=== PATIENT | female | born 1955 | race Caucasian/White ===

== ENCOUNTER → 2017-08-28 | Outpatient (CLI) | payer MEDICARE ==
--- NOTE | 2017-08-28 18:52 | CONS ---
CONSULTATION DATE OF SERVICE: 08/28/17 62-year-old lady who has been evaluated in the [facility] for possible obstructive sleep apnea-hypopnea syndrome. HISTORY OF PRESENT ILLNESS/SLEEP WAKE EVALUATION: Patient usual sleep schedule from around midnight until 6:00 a.m. and then she gets out of bed around 8:00 a.m. Usually no problems with falling asleep. No TV in bedroom. She snores, has witnessed episodes of stopped breathing during the sleep. She grinds her teeth. Wakes up with dry mouth. Positive history of sleep talking. The patient wakes up from sleep up to 6 times with up to 4 episodes or nocturia. In the morning patient wakes up tired, falling asleep during the day. Takes naps usually in the afternoon. Usually during the naps no dreams. [place] Sleepiness Scale significantly increased to 15. PAST MEDICAL HISTORY: Positive for hypertension, diabetes, hyperlipidemia, Kasia granulomatosis, total hysterectomy for small area of CA, some nasal breathing problems. PAST SURGICAL HISTORY: Lung biopsy, total hysterectomy, mass removed from the abdomen was benign 2014. MEDICATIONS: Glipizide, metformin, amlodipine, atorvastatin, lisinopril, baby aspirin. SOCIAL HISTORY: Negative for smoking. Alcohol consumption rarely. REVIEW OF SYSTEMS: Multiple awakenings from sleep. Sleepiness during the day. No fevers No double vision. No recent chest pain. No shortness of breath. No abdominal pain. No bleeding episodes. No blood in urine. No seizure episodes. FAMILY HISTORY: Hypertension, angina, heart problems, stroke, arthritis, cancer, snoring, sleep apnea, lung problems, acid reflux, diabetes, anemia, restless legs. PHYSICAL EXAM: GENERAL: 62-year-old lady without distress. VITAL SIGNS: BP 156/85, HR 82, RR 16, height 5 foot 8, weight 274, BMI 41.6. Neck 18 inches in circumference. Temperature 98. Oxygen saturation 94%. HEENT: PERRLA, EOMI. Evaluation of oropharynx showed low position of soft palate. Retrognathia 3 mm. Restriction of nasal breathing, wide neck. NECK: Supple. No JVD. Thyroid is not palpable. LUNGS: clear to percussion and to auscultation. Good air exchange. No wheezing or rhonchi. HEART: S1, S2 regular. No murmurs, gallops or rubs. ABDOMEN: Obese. Soft and nontender. Bowel sounds are present. No organomegaly appreciated. EXTREMITIES: No cyanosis or clubbing. CASER UP: Awake, alert and oriented x3. Cranial nerves II through VII intact. There is no fasciculation or atrophy noted. No focal deficits observed. IMPRESSION: 1. Snoring, witnessed episodes of stopped breathing during sleep, low position of soft palate, multiple awakenings from sleep, sleepiness, wide neck, obstructive sleep apnea-hypopnea syndrome. 2. Obesity, BMI 41.6. 3. Diabetes mellitus. 4. Hypertension. 5. Hyperlipidemia. 6. History of Kasia granulomatosis of the lungs. 7. Status post total hysterectomy for small carcinoma. 8. Status post benign mass removed from the abdomen in 2014. 9. Possible nasal septum deviation with restriction of nasal breathing. PLAN: 1. Polysomnography for evaluation of patient's breathing during sleep. 2. CPAP/BiPAP titration if sleep study confirms obstructive sleep apnea-hypopnea syndrome. 3. Preferable position during sleep on the side. 4. No driving if patient feels any sleepiness. Patient is aware of civil and criminal liability for unsafe driving. 5. I will see the patient for follow-up visit to explain results of the testing and following plan. Thank you very much for allowing me to participate in the management of your patient. Sincerely, Golden Alexander MD, PhD, FAASM Diplomat of [place], Sleep Medicine Board by [employer] [employer] Air Traffic Coordinator of [facility] [place] MMODL / IJN: [id number] /
== END ==
LOC: SLEEP 14:32
PROVIDERS: ATTEND Internal Medicine
DX: G47.33 Obstructive sleep apnea (adult) (pediatric) (principal); E66.9 Obesity, unspecified; E11.9 Type 2 diabetes mellitus without complications; I10 Essential (primary) hypertension; E78.5 Hyperlipidemia, unspecified; Z68.41 Body mass index [BMI] 40.0-44.9, adult; M31.30 Wegener's granulomatosis without renal involvement; Z90.710 Acquired absence of both cervix and uterus; Z79.899 Other long term (current) drug therapy; Z79.82 Long term (current) use of aspirin
CPT/HCPCS: 99211

== ENCOUNTER → 2017-12-18 | Outpatient (CLI) | payer MEDICARE ==
--- NOTE | 2017-12-18 18:14 | PN ---
PROGRESS NOTE DATE OF SERVICE: 12/18/2017 A 62-year-old lady who has been followed in the Sleep Center for treatment of severe obstructive sleep apnea-hypopnea syndrome. Recently patient had a polysomnogram and CPAP titration and I discussed results of sleep studies with patient in details. She has severe sleep apnea and subsequently was started on treatment with CPAP. She feels significantly better with CPAP. She is sleeping better and she feels better during the day. I checked her CPAP unit. CPAP pressure of 13 cm of water. Usage is 26/30 nights for more than 4 hours, average 6.5 hours per night. Leak is only 2 L/minute which is practically nothing. Apnea-hypopnea index reading from the machine for the last month is only 0.3, which is perfect. [place] Sleepiness Scale today is 5. MEDICATIONS: Occasions glipizide, metformin, amlodipine, atorvastatin, lisinopril, aspirin. PHYSICAL EXAM: GENERAL Patient in no distress. VITAL SIGNS BP 150/74, HR 78, RR 16, weight 277, temp 97.7, oxygen saturation room air 97%. HEENT PERRLA, EOMI, evaluation of oropharynx showed moderately low position of soft palate. Big uvula. NECK Supple, no JVD. Thyroid is not palpable. LUNGS Clear to percussion and to auscultation. Good air exchange. No wheezing or rhonchi. HEART S1, S2 regular. No murmurs, gallops, or rubs. ABDOMEN Obese. Soft and nontender. Bowel sounds are present. No organomegaly appreciated. EXTREMITIES No clubbing or cyanosis. ACCOUNT SUPPORT SPECIALIST Awake, alert, and oriented X3. Cranial nerves 2 to 7 intact. There is no fasciculation or atrophy. noted. No focal deficits observed. physical exam normal. IMPRESSION: 1. Extremely severe obstructive sleep apnea-hypopnea syndrome with extremely severe oxygen desaturation to 57.1% on control with CPAP at 13 cm of water. Patient demonstrated great compliance with treatment, benefitting from treatment. 2. Obesity. 3. Severe periodic limb movements during titration. No periodic limb movements during diagnostic night. Presently, patient does not have any significant periodic limb movements during sleep. 4. Diabetes mellitus. 5. Hypertension. 6. Hyperlipidemia. 7. History of Rabun's granulomatosis of the lungs. 8. Status post total hysterectomy, . 9. Status post benign mass and mass removed from the abdomen in 2015. 10.Some restriction of nasal breathing, possible slight nasal septal deviation. PLAN: 1. Patient will continue to use her CPAP equipment every night for the whole night. 2. Losing weight. 3. Sleep hygiene with regular time bed for at least 8 hours. 4. No driving if feeling sleepiness. Thank you very much for allowing me to participate in management of your patient. Sincerely, Golden Alexander MD, PhD, FAASM Diplomat of [place] [employer] [place] [employer] Moose Hunter of [facility] [place] MMODL / IJN: [id number] /
== END | disposition home or self-care (01) ==
LOC: SLEEP 16:00
PROVIDERS: ATTEND Internal Medicine
DX: G47.33 Obstructive sleep apnea (adult) (pediatric) (principal); G47.61 Periodic limb movement disorder; E78.5 Hyperlipidemia, unspecified; E11.9 Type 2 diabetes mellitus without complications; I10 Essential (primary) hypertension; E66.9 Obesity, unspecified; Z99.89 Dependence on other enabling machines and devices; Z79.899 Other long term (current) drug therapy; Z79.84 Long term (current) use of oral hypoglycemic drugs; Z79.82 Long term (current) use of aspirin; Z87.09 Personal history of other diseases of the respiratory system; Z90.710 Acquired absence of both cervix and uterus

== ENCOUNTER → 2018-08-05 | Outpatient (CLI) | payer MEDICARE ==
--- NOTE | 2018-08-05 08:55 | US ---
EXAMINATION TYPE: US liver DATE OF EXAM: 08/05/2018 COMPARISON: CT 03/26/2016 CLINICAL HISTORY: 62-year-old female R74.8 Elevated liver enzymes. FINDINGS: CHIEF OPHTHALMIC TECHNICIAN NOTES: Difficult and limited exam due to overlying bowel gas and patient body habitus EXAM MEASUREMENTS: Liver Length: 19.5 cm Gallbladder Wall: 0.2 cm, within normal limits. CBD: 0.5 cm Right Kidney: 12.0 x 4.4 x 6.0 cm Pancreas: Only a small portion of the pancreatic neck is seen. Remainder is obscured by bowel gas. Liver: Enlarged, echogenic, and attenuating. This secondarily limits assessment for focal lesion. Gallbladder: Borderline distended. No stones visualized Evidence for sonographic Archuleta's sign: No CBD: wnl as visualized, distal portion obscured by bowel gas Right Kidney: No hydronephrosis. IMPRESSION: 1. Enlarged (19.5 cm), echogenic, and attenuating liver suggesting marked hepatic steatosis. 2. Gallbladder is borderline distended likely relating to fasting state. No cholelithiasis or ancilla ry findings of acute cholecystitis.
== END | disposition home or self-care (01) ==
LOC: RADUSWWP 07:00
PROVIDERS: ATTEND Family Medicine
DX: R16.0 Hepatomegaly, not elsewhere classified (principal); K82.8 Other specified diseases of gallbladder; R74.8 Abnormal levels of other serum enzymes
CPT/HCPCS: 76705

== ENCOUNTER → 2019-02-17 | Outpatient (CLI) | payer MEDICARE ==
--- NOTE | 2019-02-18 10:46 | MM ---
Reason for exam: screening (asymptomatic). Last mammogram was performed 2 years and 11 months ago. History: Patient is postmenopausal, has history of other cancer at age 59, and had first child at age 36. Physical Findings: A clinical breast exam by your physician is recommended on an annual basis and results should be correlated with mammographic findings. MG 3D Screening Mammo W/Cad Bilateral CC and MLO view(s) were taken. Prior study comparison: March 26, 2016, bilateral MG screening mammo w CAD. April 28, 2013, bilateral digital screening mammo w/CAD. There are scattered fibroglandular densities. No suspicious abnormality. No significant changes when compared with prior studies. ASSESSMENT: Negative, BI-RAD 1 RECOMMENDATION: Routine screening mammogram of both breasts in 1 year.
== END ==
LOC: RADMAMWWP 09:41
PROVIDERS: ATTEND Family Medicine
DX: Z12.31 Encounter for screening mammogram for malignant neoplasm of breast (principal)
CPT/HCPCS: 77063; 77067

== ENCOUNTER → 2019-06-10 | Outpatient (CLI) | payer MEDICARE ==
--- NOTE | 2019-06-10 18:22 | PN ---
PROGRESS NOTE DATE OF SERVICE: 06/10/2019 This patient is a 63-year-old lady who has been followed in Sleep Center for treatment of obstructive sleep apnea-hypopnea syndrome. The patient continues to use her CPAP equipment every night for the whole night without significant problems related to mask fitting, pressure or humidification. [place] Sleepiness Scale today is 5. I checked her CPAP unit. CPAP pressure is 13 cm of water. The patient is using equipment every night for the whole night 100% of nights, with average usage 7 hours per night. Leak is only 2 L/minute. Apnea-hypopnea index reading from the machine is only 0.8, which is absolutely perfect. MEDICATIONS: 1. Metformin. 2. Amlodipine. 3. Atorvastatin. 4. Lisinopril. 5. Aspirin. 6. Glipizide. 7. Insulin. PHYSICAL EXAMINATION: GENERAL: A pleasant patient in no distress. VITAL SIGNS: BP 162/77, HR 80, RR 16, height 5 feet 8 inches, weight 270 pounds, which is 7 pounds less than during his last visit, body mass index 41. Temperature 97.1. Oxygen saturation at room air 95%. HEENT: PERRLA, EOMI. Evaluation of oropharynx showed tongue protrudes midline. Moderately low position of soft palate. NECK: Supple. No JVD. Thyroid is not palpable. LUNGS: Clear to percussion and to auscultation. Good air exchange. No wheezing or rhonchi. HEART: S1, S2 regular. No murmurs, gallops or rubs. ABDOMEN: Slightly obese. EXTREMITIES: No clubbing or cyanosis. SAFETY TECHNICIAN: Awake, alert, and oriented X3. Cranial nerves 2 to 7 intact. There is no fasciculation or atrophy. noted. No focal deficits observed. IMPRESSION: 1. Extremely severe obstructive sleep apnea-hypopnea syndrome with oxygen desaturation to 57%, under full control with CPAP at 13 cm of water. Patient demonstrated 100% compliance with treatment, benefitting from treatment. 2. History of periodic limb movements during titration. No symptoms of periodic limb movements at the present time. 3. Obesity. 4. Diabetes mellitus. 5. Hypertension. 6. Hyperlipidemia. 7. History of Kasia's granulomatosis of the lungs. 8. Status post total hysterectomy. 9. Status post benign mass removed from the abdomen in 2014. 10.Some restriction of nasal breathing; possibly nasal septum deviation. PLAN: 1. Prescription for all necessary CPAP supplies, including mask, tube, filters. 2. Patient will continue to use CPAP equipment every night for the whole night. 3. Continue losing weight. 4. Sleep hygiene with regular time in bed for at least 8 hours. 5. No driving if feeling any sleepiness. Thank you very much for allowing me to participate in the management of your patient. Sincerely, Golden Alexander MD, PhD, FAASM Diplomat of [place] [employer] [place] [employer] Baler Operator of [facility] [place] MMODL / IJN: [id number] /
== END ==
LOC: SLEEP 15:50
PROVIDERS: ATTEND Internal Medicine
DX: G47.33 Obstructive sleep apnea (adult) (pediatric) (principal); E66.9 Obesity, unspecified; E11.9 Type 2 diabetes mellitus without complications; I10 Essential (primary) hypertension; E78.5 Hyperlipidemia, unspecified; Z87.09 Personal history of other diseases of the respiratory system; Z90.710 Acquired absence of both cervix and uterus; Z98.890 Other specified postprocedural states; J98.8 Other specified respiratory disorders; Z99.89 Dependence on other enabling machines and devices; Z79.899 Other long term (current) drug therapy; Z79.82 Long term (current) use of aspirin; Z79.4 Long term (current) use of insulin; Z68.41 Body mass index [BMI] 40.0-44.9, adult

== ENCOUNTER → 2020-08-25 | Outpatient (CLI) | payer SELFPAY ==
--- NOTE | 2020-08-25 11:08 | XR ---
EXAMINATION TYPE: XR chest 2V DATE OF EXAM: 08/25/2020 COMPARISON: 05/10/2013 INDICATION: Cough, history of Shaan's granulomatosis, hemoptysis TECHNIQUE: Frontal and lateral views of the chest are obtained. FINDINGS: The heart size is normal. The pulmonary vasculature is normal. The lungs are clear. Tracheobronchial tree as visualized is unremarkable. IMPRESSION: 1. No acute pulmonary process.
== END | disposition home or self-care (01) ==
LOC: RADXRMAIN 10:04
PROVIDERS: ATTEND Family Medicine
DX: R05 Cough (principal)
CPT/HCPCS: 71046

== ENCOUNTER → 2020-09-15 | Outpatient (CLI) | payer MEDICARE ==
--- NOTE | 2020-09-15 17:03 | ECHOF ---
Referral Reason:I34.0 nonrheumatic mitral valve insufficiency MEASUREMENTS -------- HEIGHT: 172.7 cm WEIGHT: 118.8 kg BP: RVIDd: 2.9 cm (< 3.3) IVSd: 1.5 cm (0.6 - 1.1) LVIDd: 3.7 cm (3.9 - 5.3) LVPWd: 1.7 cm (0.6 - 1.1) IVSs: 1.7 cm LVIDs: 2.6 cm LVPWs: 1.8 cm LA Diam: 4.7 cm (2.7 - 3.8) LAESV Index (A-L): 30.00 ml/m Ao Diam: 3.0 cm (2.0 - 3.7) AV Cusp: 2.0 cm (1.5 - 2.6) MV EXCURSION: 16.009 mm (> 18.000) MV EF SLOPE: 51 mm/s (70 - 150) EPSS: 0.4 cm MV E Kevin: 0.54 m/s MV DecT: 279 ms MV A Kevin: 0.88 m/s MV E/A Ratio: 0.61 AV maxP.42 mmHg AV meanP.49 mmHg RAP: 5.00 mmHg RVSP: 34.57 mmHg FINDINGS -------- Sinus rhythm. This was a technically adequate study. The left ventricular size is normal. There is moderate concentric left ventricular hypertrophy. O verall left ventricular systolic function is normal with, an EF between 55 - 60 %. The diastolic fi lling pattern is normal for the age of the patient 11.27. The right ventricle is normal in size. LA is midly dilated 29-33ml/m2. The right atrial size is normal. There is mild aortic valve sclerosis. There is mild aortic stenosis present. Peak/mean gradient a cross the Aortic Valve is 16.42mmHg / 8.49mmHg. The mitral valve is normal. Mild mitral regurgitation is present. The tricuspid valve appears structurally normal. Mild tricuspid regurgitation present. Right vent ricular systolic pressure is normal at < 35 mmHg. There is no pulmonic regurgitation present. The aortic root size is normal. Echo free space represents a pericardial fat pad. CONCLUSIONS -------- 1. There is moderate concentric left ventricular hypertrophy. 2. Overall left ventricular systolic function is normal with, an EF between 55 - 60 %. 3. LA is midly dilated 29-33ml/m2. 4. There is mild aortic stenosis present. 5. Peak/mean gradient across the Aortic Valve is 16.42mmHg / 8.49mmHg. 6. Mild mitral regurgitation is present. 7. Mild tricuspid regurgitation present. 8. Echo free space represents a pericardial fat pad. MEDICAL SUPERINTENDENT: Penelope Polanco RDCS
--- NOTE | 2020-09-18 17:30 | BD ---
EXAMINATION TYPE: Axial Bone Density DATE OF EXAM: 09/15/2020 COMPARISON: NONE CLINICAL HISTORY: Postmenopausal screening Height: 5 FT 8 1/2 IN Weight: 267 FRAX RISK QUESTIONS: Alcohol (3 or more units per day): NO Family History (Parent hip fracture): NO Glucocorticoids (More than 3mos): YES (Ex: prednisone, prednisolone, methylprednisolone, dexamethasone, and hydrocortisone). History of Fracture in Adulthood: NO Secondary Osteoporosis: 1. Type 1 Diabetes: NO 2. Hyperthyroidism: NO 3. Menopause before 45: NO 4. Malnutrition: NO 5. Chronic liver disease: YES Rheumatoid Arthritis: NO Current Tobacco Use: NO RISK FACTORS HISTORY OF: Family History of Osteoporosis: NO Active: SEMI Postmenopausal woman: AGE 47 Take estrogen and/or progesterone medications: NO MEDICATIONS: Additional Medications: LISINOPRIL, GLIPIZIDE, METFORMIN, CHLORTHALID, ATORVASTATIN, AMLODIPINE, INS ULIN Additional History: EXAM MEASUREMENTS: Bone mineral densitometry was performed using the [facility] System. Bone mineral density as measured about the Lumbar spine is: ----- L1-L4(G/cm2): 1.435 T Score Values are as follows: ----- L2: 1.6 ----- L3: 2.7 ----- L4: 2.1 ----- L1-L4: 2.1 BASELINE Bone mineral density about the R hip (g/cm2): 1.162 Bone mineral density about the L hip (g/cm2): 1.187 T Score values are as follows: -----R Neck: 1.1 -----L Neck: 0.9 -----R Total: 1.3 -----L Total: 2.0 BASELINE IMPRESSION: Normal (Values between +1 and -1 indicate normal bone mass). Consider repeating this study in 5 year s or sooner if there is some new clinical indication. NOTE: T-SCORE=SD OF THE YOUNG ADULT MEAN.
--- NOTE | 2020-09-19 11:48 | MM ---
Reason for exam: screening (asymptomatic). Last mammogram was performed 1 year and 7 months ago. History: Patient is postmenopausal, has history of other cancer at age 59, and had first child at age 36. Physical Findings: A clinical breast exam by your physician is recommended on an annual basis and results should be correlated with mammographic findings. MG 3D Screening Mammo W/Cad Bilateral CC and MLO view(s) were taken. Prior study comparison: February 17, 2019, bilateral MG 3d screening mammo w/cad. March 26, 2016, bilateral MG screening mammo w CAD. There are scattered fibroglandular densities. Benign appearing bilateral calcifications. No significant changes when compared with prior studies. ASSESSMENT: Negative, BI-RAD 1 RECOMMENDATION: Routine screening mammogram of both breasts in 1 year.
== END | disposition home or self-care (01) ==
LOC: RADECHMAIN 13:47
PROVIDERS: ATTEND Family Medicine
DX: Z12.31 Encounter for screening mammogram for malignant neoplasm of breast (principal); Z78.0 Asymptomatic menopausal state; I08.3 Combined rheumatic disorders of mitral, aortic and tricuspid valves
CPT/HCPCS: 77063; 77067; 77080; 93306

== ENCOUNTER 2025-04-19 07:19 | Day surgery (SDC) | payer MEDICARE ==
[2025-04-15 15:27] VITALS: BMI 38.0
[~2025-04-19 07:19] MED LIST: LIDOCAINE 1% (10MG/ML) FOR IV START INTRADERMA PRN; ONDANSETRON 4 MG/2 ML VIAL IVP PRN
[2025-04-19 08:21] VITALS: TEMP 97.5
[2025-04-19] MEDS: LACTATED RINGERS 1,000 ML IV SCH (08:31)
[2025-04-19] MEDS: IV FLUID CONTINUATION 1,000 ML IV ONE (08:32)
[2025-04-19 08:36] LABS: Glucose,Whole Blood 158 mg/dL (70-110)
[2025-04-19] MEDS ORDERED: PROPOFOL 10 MG/ML 20 ML VIAL IV ONE (08:43)
--- NOTE | 2025-04-19 08:47 | P.GSHP ---
History of Present Illness H&P Date: 04/19/25 Chief Complaint: Colon cancer screening 6-year-old female here for colonoscopy. Last colonoscopy 11 years ago. That was normal. Family history of colon cancer in her brother. No bowel complaints. Past Medical History Past Medical History: Diabetes Mellitus, Hyperlipidemia, Hypertension, Myocardial Infarction ([place]) Additional Past Medical History / Comment(s): GRANULOMATOSIS OF LUNG Last Myocardial Infarction Date:: UNKNOWN, SILENT [place] History of Any Multi-Drug Resistant Organisms: None Reported Past Surgical History: Hysterectomy Additional Past Surgical History / Comment(s): OOPHORECTOMY, LUNG BX Past Anesthesia/Blood Transfusion Reactions: No Reported Reaction Past Psychological History: No Psychological Hx Reported Smoking Status: Never smoker Past Alcohol Use History: Occasional Past Drug Use History: None Reported Medications and Allergies Home Medications Medication Instructions Recorded Confirmed Type Atorvastatin [Lipitor] 40 mg PO HS 04/15/25 04/19/25 History Chlorthalidone [Hygroton] 25 mg PO DAILY 04/15/25 04/19/25 History Cholecalciferol [Vitamin D3 (25 25 mcg PO DAILY 04/15/25 04/19/25 History Mcg = 1000 Iu)] Cinnamon Bark [Cinnamon] 500 mg PO DAILY 04/15/25 04/19/25 History Empagliflozin [Jardiance] 10 mg PO DAILY 04/15/25 04/19/25 History Insulin NPH Hum/Reg Insulin Hm 40 units SQ BID 04/15/25 04/19/25 History [NovoLIN 70-30 Flexpen] Multivitamins, Thera [Multivitamin 1 tab PO DAILY 04/15/25 04/19/25 History (formulary)] Vit C/E/Zn/Coppr/Lutein/Zeaxan 1 each PO DAILY 04/15/25 04/19/25 History [Preservision Areds 2 Softgel] Vitamin B Complex 1 each PO DAILY 04/15/25 04/19/25 History allopurinoL 100 mg PO DAILY 04/15/25 04/19/25 History amLODIPine [Norvasc] 10 mg PO HS 04/15/25 04/19/25 History cloNIDine HCL 2 tab PO HS 04/15/25 04/19/25 History cloNIDine HCL [Catapres] 0.1 mg PO QA 04/15/25 04/19/25 History lisinopriL 40 mg PO DAILY 04/15/25 04/19/25 History Allergies Allergy/AdvReac Type Severity Reaction Status Date / Time Iodinated Contrast Media Allergy Dyspnea Verified 04/19/25 08:15 [Iodinated Contrast Media - IV Dye] Surgical - Exam Vital Signs Temp Pulse Resp BP Pulse Ox 97.5 F L 71 18 157/86 97 04/19/25 08:19 04/19/25 08:19 04/19/25 08:19 04/19/25 08:19 04/19/25 08:19 Physical exam: General: Well-developed, well-nourished HEENT: Normocephalic, sclerae nonicteric Abdomen: Nontender, nondistended Extremities: No edema Neuro: Alert and oriented Results - Labs Abnormal Lab Results - Last 24 Hours (Table) 04/19/25 Range/Units 08:35 POC Glucose (mg/dL) 158 H (70-110) mg/dL Assessment and Plan (1) Colon cancer screening Narrative/Plan: Will proceed with colonoscopy at this time. Current Visit: Yes Status: Acute Code(s): Z12.11 - ENCOUNTER FOR SCREENING FOR MALIGNANT NEOPLASM OF COLON SNOMED Code(s): 216806822
--- NOTE | 2025-04-19 09:14 | P.PCN ---
Date of Procedure: 04/19/25 Procedure(s) Performed: PREOPERATIVE DIAGNOSIS: Colon cancer screening, family history of colon cancer in brother POSTOPERATIVE DIAGNOSIS: Transverse colon polyp x 2, sigmoid colon polyp, diverticulosis PROCEDURE: Colonoscopy with snare polypectomy ANESTHESIA: MAC SURGEON: Bulmaro Max M.D. SPECIMENS: Polyps ENDOSCOPIC PROCEDURE: The patient was placed on the endoscopy table in the left decubitus position. The Olympus colonoscope was inserted into the anus and passed under direct visualization to the base of the cecum. The appendiceal orifice was visualized. From that point the scope was slowly withdrawn inspecting all surfaces carefully. There were no neoplastic inflammatory or polypoid lesions throughout the cecum and ascending colon. In the transverse colon there were 2 polyps removed using the snare with cautery technique. The descending colon was normal. In the sigmoid colon another small polyp was seen and removed using snare with cautery technique. Remainder of the sigmoid and rectum was normal. There was mild diverticulosis. Digital rectal examination was normal. The patient was taken to the recovery room in stable condition per anesthesia guidelines. RECOMMENDATIONS: Resume diet. Repeat colonoscopy 5 years.
[2025-04-19 09:40] VITALS: BP 151/80; PULSE 69; RESP 18
== END 2025-04-19 10:23 | disposition home or self-care (01) ==
LOC: ORWHC2ENDO 07:19
PROVIDERS: ATTEND Surgery
DX: Z12.11 Encounter for screening for malignant neoplasm of colon (principal); D12.3 Benign neoplasm of transverse colon; D12.5 Benign neoplasm of sigmoid colon; K57.30 Diverticulosis of large intestine without perforation or abscess without bleeding; I12.9 Hypertensive chronic kidney disease with stage 1 through stage 4 chronic kidney disease, or unspecified chronic kidney disease; E11.22 Type 2 diabetes mellitus with diabetic chronic kidney disease; N18.9 Chronic kidney disease, unspecified; E78.5 Hyperlipidemia, unspecified; I25.2 Old myocardial infarction; F10.90 Alcohol use, unspecified, uncomplicated; Z79.4 Long term (current) use of insulin; Z79.84 Long term (current) use of oral hypoglycemic drugs; Z80.0 Family history of malignant neoplasm of digestive organs; Z90.710 Acquired absence of both cervix and uterus; Z90.721 Acquired absence of ovaries, unilateral; Z91.041 Radiographic dye allergy status; Z79.899 Other long term (current) drug therapy
CPT/HCPCS: 88305; 45385; J2704